=== PATIENT | male | born 1955 | race Caucasian/White ===

== ENCOUNTER 2017-03-16 10:03 | Outpatient (CLI) | payer MEDICARE, MEDICAID ==
--- NOTE | 2017-03-16 12:58 | XRAY Report ---
THREE-VIEW LEFT ANKLE: 03/16/2017 CLINICAL INDICATION: Pain. FINDINGS: AP, lateral, oblique views of the left ankle demonstrate no evidence of fracture or disloc ation. The joint spaces appear unremarkable. No effusion is seen. IMPRESSION: NORMAL LEFT ANKLE. JOB #: [id number] EXT JOB #:[id number]
--- NOTE | 2017-03-16 12:58 | XRAY Report ---
THREE VIEW LEFT FOOT: 03/16/2017 CLINICAL INDICATION: Pain. FINDINGS: AP, lateral, and oblique views of the left foot demonstrate mild osteoarthritis of the 1st metatarsophalangeal joint. There is no evidence of acute fracture or dislocation. Small posterior ca lcaneal spur is present. IMPRESSION: MILD OSTEOARTHRITIS. JOB #: [id number] EXT JOB #:[id number]
== END 2017-03-16 10:04 | disposition home or self-care (01) ==
LOC: DI.N 10:03
PROVIDERS: ATTEND Internal Medicine
DX: M79.672 Pain in left foot (principal); M19.072 Primary osteoarthritis, left ankle and foot

== ENCOUNTER 2017-05-01 13:12 | Outpatient (CLI) | payer MEDICARE, MEDICAID | END 2017-05-01 13:13 | disposition critical access hospital (66) | LOC: EMS 13:12 | PROVIDERS: ATTEND Surgery | DX: K92.1 Melena (principal); R10.9 Unspecified abdominal pain | CPT/HCPCS: A0425; A0429 ==

== ENCOUNTER 2017-05-01 13:29 | Emergency (ER) | payer MEDICARE, MEDICAID ==
[2017-05-01] MEDS ORDERED: SODIUM CHLORIDE 0.9% 1,000 ML IV ONE (13:35)
[2017-05-01 14:10] LABS: BASOPHILS % (AUTO) 0.6 %; EOSINOPHILS # (AUTO) 0.3 10^3/uL (0.0-0.7); EOSINOPHILS % (AUTO) 3.8 %; HCT - HEMATOCRIT 40.8 % (42.0-52.0); HGB - HEMOGLOBIN 14.1 g/dL (14.0-18.0); LYMPHOCYTES # (AUTO) 2.2 10^3/uL (1.5-3.5); LYMPHOCYTES % (AUTO) 26.2 %; MEAN CORPUSCULAR HEMOGLOBIN 30.5 pg (27.0-31.0); MEAN CORPUSCULAR HGB CONC 34.5 g/dL (32.0-36.0); MEAN CORPUSCULAR VOLUME 88.4 fL (80.0-94.0); MEAN PLATELET VOLUME 8.4 fL (7.4-11.4); MONOCYTES % (AUTO) 12.5 %; NEUTROPHILS # (AUTO) 4.7 10^3/uL (1.5-6.6); NEUTROPHILS % (AUTO) 56.9 %; RED BLOOD COUNT 4.61 10^6/uL (4.70-6.10); RED CELL DISTRIBUTION WIDTH 14.1 % (12.0-15.0); UNCORRECTED WHITE BLOOD COUNT 8.3 x10^3/uL; WHITE BLOOD COUNT 8.3 x10^3/uL (4.8-10.8)
[2017-05-01 14:19] LABS: ALBUMIN/GLOBULIN RATIO 1.2 (1.0-2.2); BILIRUBIN,TOTAL 0.9 mg/dL (0.2-1.0); CALCIUM 9.2 mg/dL (8.5-10.3); CREATININE 1.1 mg/dL (0.6-1.2); POTASSIUM 4.2 mmol/L (3.5-5.0); TOTAL PROTEIN 6.9 g/dL (6.7-8.2)
[2017-05-01 14:55] LABS: PT - PROTHROMBIN TIME 11.4 secs (9.9-12.6)
--- NOTE | 2017-05-01 15:14 | ED Physician Documentation ---
History of Present Illness - Stated complaint Stated Complaint: GI BLEED - Chief complaint Chief Complaint: Abd Pain - Additonal information Additional information: hx from pt 61 male hx hemorrhoids and has had bloody BM for 1-2 weeks inc blood now and LLQ pain called PMD and sent to ER no fever CP NVD has some heartburn too no blood thinners Review of Systems Constitutional: denies: Fever Cardiac: denies: Chest pain / pressure Respiratory: denies: Dyspnea GI: reports: Abdominal Pain, Bloody / black stool : denies: Dysuria Endocrine: denies: Easy bruising / bleeding Immunocompromised: denies: Immunocompromised PD PAST MEDICAL HISTORY - Past Medical History Other Past Medical History: see [facility] for Pmhx - not importing from [facility] - Present Medications Home Medications: Ambulatory Orders Medication Instructions Recorded Confirmed Amantadine HCl [Amantadine] 100 mg PO DAILY 05/01/17 05/01/17 Brimonidine Tartrate 2 drops 05/01/17 Clonazepam 05/01/17 Divalproex ER [Depakote ER] 2,500 mg PO DAILY 05/01/17 05/01/17 Famotidine 20 mg pe PO BID 05/01/17 05/01/17 Fluticasone [Flonase] 05/01/17 Fluticasone/Salmeterol [Advair Hfa 05/01/17 115-21 Mcg Inhaler] Furosemide [Lasix] 20 mg PO DAILY 05/01/17 05/01/17 Glipizide 5 mg PO DAILY 05/01/17 05/01/17 OLANZapine ODT [Zyprexa Odt] 05/01/17 Paliperidone Palmitate [Invega 05/01/17 Sustenna] - Allergies Allergies/Adverse Reactions: Allergies Allergy/AdvReac Type Severity Reaction Status Date / Time amoxicillin Allergy Unknown Verified 05/01/17 13:43 aspirin Allergy Unknown Verified 05/01/17 13:43 bacitracin Allergy Unknown Verified 05/01/17 13:43 [From Triple Antibiotic] bacitracin zinc * Allergy Unknown Verified 05/01/17 13:43 [From Triple Antibiotic] coffee (Coffea arabica) Allergy Unknown Verified 05/01/17 13:43 ibuprofen Allergy Unknown Verified 05/01/17 13:43 morphine Allergy Unknown Verified 05/01/17 13:43 neomycin sulfate * Allergy Unknown Verified 05/01/17 13:43 [From Triple Antibiotic] Penicillins Allergy Unknown Verified 05/01/17 13:43 polymyxin B Allergy Unknown Verified 05/01/17 13:43 [From Triple Antibiotic] polymyxin B sulfate * Allergy Unknown Verified 05/01/17 13:43 [From Triple Antibiotic] Pork/Porcine Containing Allergy Unknown Verified 05/01/17 13:43 Products sulfamethoxazole Allergy Unknown Verified 05/01/17 13:43 temazepam Allergy Unknown Verified 05/01/17 13:43 terazosin Allergy Unknown Verified 05/01/17 13:43 trimethoprim Allergy Unknown Verified 05/01/17 13:43 PD ED PE NORMAL - Vitals Vital signs reviewed: Yes - Neck Neck: Supple, no meningeal sign - Cardiac Cardiac: RRR - Respiratory Respiratory: No respiratory distress, Clear bilaterally - Abdomen Abdomen: Other (mod TTP mid L abd s rebound or gaurding) - Rectal Rectal: Other (hospital internship Gricelda, no fissure, no hemorrhoid, no mass on JERRY, red - maroon strongly heme + stool QC passed) - Derm Derm: Normal color - Neuro Neuro: Alert and oriented X 3 Results - Vitals Vitals: Vital Signs - 24 hr 05/01/17 05/01/17 13:30 16:40 Temperature 36.3 C L Heart Rate 78 80 Respiratory 18 18 Rate Blood Pressure 138/72 H 131/64 H O2 Saturation 97 98 Oxygen O2 Source Room air - Labs Labs: Laboratory Tests 05/01/17 05/01/17 05/01/17 13:55 13:55 13:55 WBC 8.3 RBC 4.61 L Hgb 14.1 Hct 40.8 L MCV 88.4 MCH 30.5 MCHC 34.5 RDW 14.1 Plt Count 197 MPV 8.4 Neut # 4.7 Lymph # 2.2 Lares # 1.0 Eos # 0.3 Baso # 0.0 Absolute Nucleated RBC 0.00 Nucleated RBCs 0.0 PT 11.4 INR 1.0 Sodium 135 Potassium 4.2 Chloride 100 L Carbon Dioxide 26 Anion Gap 9.0 BUN 18 Creatinine 1.1 Estimated GFR (MDRD) 68 L Glucose 202 H Calcium 9.2 Total Bilirubin 0.9 AST 45 H ALT 71 H Alkaline Phosphatase 64 Total Protein 6.9 Albumin 3.8 Globulin 3.1 Albumin/Globulin Ratio 1.2 Lipase 20 L Blood Type Antibody Screen 05/01/17 13:55 WBC RBC Hgb Hct MCV MCH MCHC RDW Plt Count MPV Neut # Lymph # Lares # Eos # Baso # Absolute Nucleated RBC Nucleated RBCs PT INR Sodium Potassium Chloride Carbon Dioxide Anion Gap BUN Creatinine Estimated GFR (MDRD) Glucose Calcium Total Bilirubin AST ALT Alkaline Phosphatase Total Protein Albumin Globulin Albumin/Globulin Ratio Lipase Blood Type A NEGATIVE Antibody Screen NEGATIVE - Rads (name of study) CT abd pelvis Radiology: See rad report (no acute process) PD MEDICAL DECISION MAKING - ED course ED course: melena on rectal - but sx for two weeks and hemodynamically sable and nl H/H - think pt has proven himself a stable GI bleed - CT shows no acute process seems reasonable and safe to dc to [facility] (where pt can be monitored and have VS taken etc) and fup Dr Candelario tomorrow for repeat H/H and I will also refer to surgeons for scoeps and further eval Departure - Departure Disposition: 01 Home, Self Care Clinical Impression: GI bleed Qualifiers: GI bleed type/associated pathology: unspecified gastrointestinal hemorrhage type Qualified Code(s): K92.2 - Gastrointestinal hemorrhage, unspecified Condition: Good Instructions: ED Hematochezia Stable Follow-Up: Ángel Ramirez MD [Provider Admit Priv/Credential] - (to schedule endoscopy and colonoscopy) Dilcia Candelario MD [Primary Care Provider] - (tomorrow for a recheck and a repeat blood count) Comments: You definitely have blood in your stools But your blood count is still fine and your CT scan does not show any acute problems So I think i is safe for you to go home and get further work up as an outpatient. I would like the [facility] staff to check your vitals signs every 6 hr and to call the ER or your doctor if your heart rate is fast or your blood pressure is low. And please see Dr Candelario tomorrow to recheck your blood count. And also call the surgical office to get set up for scoped of your stomach and colon. Avoid any alcohol and NSAIDS such as motrin which cause internal bleeding And of course return if worse - even though you are stable now you could get worse and need surgery or admission later - so please come back for worsening symptoms Discharge Date/Time: 05/01/17 16:40
--- NOTE | 2017-05-01 15:23 | CT Preliminary Report ---
Exam: CT Abdomen/Pelvis W/O IMPRESSION: Within the limits of noncontrast examination, no acute inflammatory or obstructive proces s identified to explain left abdominal pain. [facility] SITE ID: [id number]
--- NOTE | 2017-05-01 15:25 | CT Report ---
EXAM: CT ABDOMEN AND PELVIS EXAM DATE: 05/01/2017 02:47 PM. CLINICAL HISTORY: Left mid abdominal pain. GI bleed. COMPARISONS: None. TECHNIQUE: Routine helical CT imaging was performed through the abdomen and pelvis. IV contrast: None . Enteric contrast: None. Reconstructions: Coronal and sagittal. In accordance with CT protocol optimization, one or more of the following dose reduction techniques w ere utilized for this exam: automated exposure control, adjustment of mA and/or KV based on patient s ize, or use of iterative reconstructive technique. FINDINGS: Lung Bases: Unremarkable. Liver: Unremarkable noncontrast appearance. Gallbladder/Bile Ducts: Post cholecystectomy. No biliary ductal dilatation. Spleen: Normal size. No contour deforming mass. Pancreas: No contour deforming mass or ductal dilatation. Adrenal Glands: Normal. Kidneys and Ureters: Multifocal left cortical scarring. No stones, hydronephrosis, or hydroureter. Peritoneal Cavity/Bowel: Prominent gas-containing diverticulum projecting medially from the second po rtion of the duodenum. Few proximal sigmoid colon diverticula. The bowel is otherwise grossly unremar kable, without evident focal wall thickening or adjacent mesenteric fat stranding to suggest acute in flammatory process, or evidence of bowel obstruction. The appendix is normal. No free fluid, pneumope ritoneum, or yareli adenopathy. Pelvic Organs: Normal. The bladder and visualized pelvic organs are within normal limits. Vasculature: Trace atherosclerotic calcifications in the aorta. No aneurysm. Bones: Mild right convex curvature centered at L5. Severe degenerative disk disease at L4-L5 and L5-S 1. No acute bony abnormality. Other: None. IMPRESSION: Within the limits of noncontrast examination, no acute inflammatory or obstructive proces s identified to explain left abdominal pain. [facility] Referring Provider Line: [phone] SITE ID: [id number]
[2017-05-01 16:41] VITALS: BP 131/64
== END 2017-05-01 16:40 | disposition home or self-care (01) ==
LOC: EDUNIT# → ED 13:29
DX: K92.1 Melena (principal); K64.9 Unspecified hemorrhoids
CPT/HCPCS: 36415; 74176; 80053; 83690; 85025; 85610; 86850; 86900; 86901; 96360; 96361; 99283; 99284

== ENCOUNTER 2017-05-16 06:00 | Day surgery (SDC) | payer MEDICARE, MEDICAID ==
[2017-05-16] MEDS ORDERED: LACTATED RINGERS 1,000 ML IV ONE ×2 (07:23→08:08)
[2017-05-16] MEDS ORDERED: MIDAZOLAM 2 MG/2 ML VIAL IVP ONE (07:58)
[2017-05-16] MEDS ORDERED: fentaNYL 100 MCG/2 ML VIAL IVP ONE (07:58)
[2017-05-16] MEDS ORDERED: BENZOCAINE/TETRACAINE/BUTAMBEN SPRAY 56 GM TOP ONE (08:05)
[2017-05-16] MEDS ORDERED: LIDO GARGLE 30 ML BOTTLE PO ONE (08:06)
[2017-05-16 09:39] VITALS: BP 128/72
== END 2017-05-16 06:01 | disposition home or self-care (01) ==
LOC: SDS 06:00
PROVIDERS: ATTEND Surgery
PROC: 0DB68ZX Excision of Stomach, Via Natural or Artificial Opening Endoscopic, Diagnostic (ICD-10-PCS; principal; 2017-05-16 07:30)
DX: K31.7 Polyp of stomach and duodenum (principal); K29.70 Gastritis, unspecified, without bleeding; K20.9 Esophagitis, unspecified; I10 Essential (primary) hypertension; I25.2 Old myocardial infarction; E11.9 Type 2 diabetes mellitus without complications; Z79.4 Long term (current) use of insulin; J45.909 Unspecified asthma, uncomplicated; J44.9 Chronic obstructive pulmonary disease, unspecified; G47.33 Obstructive sleep apnea (adult) (pediatric); Z87.891 Personal history of nicotine dependence
CPT/HCPCS: 43239; 87081; A9270; J7120

== ENCOUNTER 2017-08-17 10:42 | Outpatient (CLI) | payer MEDICARE, MEDICAID ==
--- NOTE | 2017-08-17 16:13 | Ultrasound Report ---
DATE OF SERVICE: 08/17/2017 COMPLETE ABDOMINAL ULTRASOUND: 08/17/2017 CLINICAL INDICATION: Elevated LFTs. TECHNIQUE: Real-time scanning was performed with primary care sales representative static images obtained. FINDINGS: The liver measures 18.3 cm. Hepatic echogenicity is increased, compatible with fatty infiltration. No focal parenchymal lesion or intrahepatic biliary dilatation is seen. The common bile duct measures 3 mm. The gallbladder is surgically absent. The pancreas is obscured by bowel gas. Right kidney measures 12.2 cm, and demonstrates small cortical cysts, the largest measuring 1.2 cm. The left kidney measures 12.6 cm, and appears unremarkable. The spleen measures 11.5 cm, and demonstrates normal echotexture. The abdominal aorta is normal in caliber. The inferior vena cava is unremarkable. No free fluid is present. IMPRESSION: CHANGES OF CHOLECYSTECTOMY. LIKELY FATTY INFILTRATION OF THE LIVER. TD: 08/17/2017 17:12
== END 2017-08-17 10:43 | disposition home or self-care (01) ==
LOC: DI 10:42
PROVIDERS: ATTEND Internal Medicine
DX: R94.5 Abnormal results of liver function studies (principal); Z90.49 Acquired absence of other specified parts of digestive tract
CPT/HCPCS: 76700

== ENCOUNTER 2017-08-22 10:42 | Outpatient (CLI) | payer MEDICARE, MEDICAID | END 2017-08-22 10:43 | disposition home or self-care (01) | LOC: SC 10:42 | PROVIDERS: ATTEND Internal Medicine Pulmonary Disease | DX: G47.33 Obstructive sleep apnea (adult) (pediatric) (principal) | CPT/HCPCS: 99203; G0463; 99212 ==

== ENCOUNTER 2017-09-10 10:05 | Outpatient (CLI) | payer MEDICARE, MEDICAID ==
--- NOTE | 2017-09-10 17:35 | XRAY Report ---
EXAM: CHEST RADIOGRAPHY EXAM DATE: 09/10/2017 10:23 AM. CLINICAL HISTORY: Cough x2 weeks COMPARISON: None. TECHNIQUE: 2 views. FINDINGS: Lungs/Pleura: Normal volumes. No focal consolidation or evidence of edema. No pleural effusion or pne umothorax. Mediastinum: Normal cardiomediastinal contour. Other: Anterior fusion hardware in the lower cervical spine. IMPRESSION: No acute cardiopulmonary abnormality. [facility] Referring Provider Line: [phone] SITE ID: [id number]
== END 2017-09-10 10:06 | disposition home or self-care (01) ==
LOC: DI 10:05
PROVIDERS: ATTEND Internal Medicine
DX: R05 Cough (principal)
CPT/HCPCS: 71046